=== PATIENT | female | born 1990 | race Two or more races ===

== ENCOUNTER 2022-10-03 01:12 | Emergency (ER) | payer MEDICAID ==
[~2022-10-03] VITALS: Ht 160 cm; Wt 75.0 kg
[2022-10-03 03:16] LABS: Basophils # (auto) 0 10 ^3/uL (0-0.2); Basophils % (auto) 0.5 % (0.0-2.0); Eosinophils # (auto) 0.1 10 ^3/uL (0-0.8); Eosinophils % (auto) 0.6 % (0.0-7.0); Hemoglobin 12.8 g/dL (12.2-16.2); Lymphocytes # (auto) 1.8 10 ^3/uL (0.4-5.4); Lymphocytes % (auto) 20.7 % (10.0-50.0); Mean Corpuscular Hemoglobin 30.3 pg (28.0-32.0); Mean Corpuscular Hgb Conc. 32.9 g/dL (32.0-36.0); Mean Corpuscular Volume 92.3 fL (80.0-100.0); Monocytes # (auto) 0.5 10 ^3/uL (0-1.3); Neutrophils # (auto) 6.3 10 ^3/uL (1.6-8.6); Neutrophils % (auto) 72.2 % (37.0-80.0); Red Blood Cells 4.23 10^6/uL (4.0-5.20); Red Cell Distribution Width 13.7 % (11.8-14.3); White Blood Cell 8.7 10^3/uL (4.4-10.8)
[2022-10-03 03:38] LABS: Calcium 9.6 mg/dL (8.5-10.1); Potassium 4.2 mmol/L (3.5-5.1)
[2022-10-03 03:42] LABS: BUN/Creatinine Ratio 14.1; Bilirubin, Total 0.3 mg/dL (0.2-1.0); Total Protein 8.3 g/dL (6.4-8.2)
[2022-10-03] MEDS ORDERED: KETOROLAC TROMETH 60MG/2ML VIAL IM ONE (06:45)
[2022-10-03 07:27] LABS: Urine Bacteria FEW /hpf (None Seen); Urine Blood 2+ /uL (Negative); Urine Budding Yeast OCCASIONAL /hpf (None Seen); Urine Hyaline Cast FEW /lpf (0 - 2); Urine Specific Gravity 1.006 (1.001-1.035); Urine WBC 41 /hpf (0 - 5)
[2022-10-03 07:30] VITALS: BP 122/85
[2022-10-03] MEDS ORDERED: IBUP800T27 PO (07:32)
[2022-10-03] MEDS ORDERED: CIPR-173 PO (07:32)
== END 2022-10-03 07:47 | disposition home or self-care (01) ==
LOC: ER 01:12
DX: S39.011A Strain of muscle, fascia and tendon of abdomen, initial encounter (principal); N39.0 Urinary tract infection, site not specified; X58.XXXA Exposure to other specified factors, initial encounter; Y93.89 Activity, other specified; Y92.89 Other specified places as the place of occurrence of the external cause; Y99.8 Other external cause status
CPT/HCPCS: 36415; 74176; 80053; 81001; 83690; 85025; 96372; 99284; J1885

== ENCOUNTER 2025-07-13 20:58 | Observation (INO) | payer SELFPAY ==
[~2025-07-13] VITALS: Ht 160 cm; Wt 81.6 kg
[~2025-07-13 20:58] MED LIST: CIPR-173 PO; IBUP-1456 PO
[2025-07-13] MEDS ORDERED: PREN-96 PO (22:11)
--- NOTE | 2025-07-13 23:10 | DVHDS2 ---
Physician Discharge Progress N Final Diagnosis: not in labor Operations or Procedures: Operations or Procedures S: 35yo IUP@37.0wks presents to OB triage for rule out labor, having UCs since this afternoon. Denies LOF/VB/GREER/vision changes/RUQ pain. Endorses +FM. PNC at [facility] [place], [facility]. O: VSS NST reactive (last 20 minutes) TOCO: irregular UCs SVE by RN: FT/50/-3 A: 35yo IUP@37.0wks not in labor P: D/C home FKC/PreE/labor precautions reviewed f/u with primary OB as scheduled Condition on Discharge: Stable Disposition: Home Discharge Instructions: Diet: Regular Activity: No Restrictions, As Tolerated Medications: see med list Follow Up Care: Specialist: f/u with primary OB as scheduled Discharge Statement: "Patient was advised to return to the ER or call 911 if any headaches, dizziness, shortness of breath, chest pain, abdominal pain, bleeding, fevers, or worsening of medical condition. Patient was counseled about treatment plan, medications, possible side effects, patientverbalized understanding. All questions were answered to the best of my ability. This discharge took greater then 30 minutes in planning, reviewing documentation, counseling the patient, and discussing with other team members." Visit Coding OBGYN Date of Service: Jul 13, 2025 Billing Provider: ASHLEY SALAZAR CNM [place] [employer] Common Visit Codes: 83207-[id number] OBS CARE (MOD) [place] Procedure Codes: 11773-92- NON-STRESS TEST ASLHEY SALAZAR CNM Jul 13, 2025 23:10
== END 2025-07-13 22:31 | disposition home or self-care (01) ==
LOC: LDRP 20:58
PROVIDERS: ADMIT Obstetrics & Gynecology; ATTEND Obstetrics & Gynecology
DX: Z36.89 Encounter for other specified antenatal screening (principal); Z3A.37 37 weeks gestation of pregnancy; Z98.890 Other specified postprocedural states; Z79.899 Other long term (current) drug therapy
CPT/HCPCS: 59025; 81002; 94760; G0378